=== PATIENT | male | born 1955 | race Caucasian/White ===

== ENCOUNTER → 2017-08-04 | Outpatient (CLI) | payer OTHER | END | disposition home or self-care (01) | LOC: PCVCIMAG 09:42 | DX: I65.22 Occlusion and stenosis of left carotid artery (principal); E78.5 Hyperlipidemia, unspecified; R94.31 Abnormal electrocardiogram [ECG] [EKG]; R06.02 Shortness of breath | CPT/HCPCS: 93325; 93351; 93880 ==

== ENCOUNTER → 2020-05-20 | Outpatient (CLI) | payer MEDICARE | LOC: LAB 06:52 | PROVIDERS: ATTEND Internal Medicine Gastroenterology | DX: Z01.812 Encounter for preprocedural laboratory examination (principal); K21.9 Gastro-esophageal reflux disease without esophagitis; Z86.010 Personal history of colon polyps; Z12.11 Encounter for screening for malignant neoplasm of colon; Z20.828 Contact with and (suspected) exposure to other viral communicable diseases | CPT/HCPCS: U0003 ==

== ENCOUNTER → 2020-05-22 | Day surgery (SDC) | payer MEDICARE ==
[~2020-05-22] MED LIST: ATOR40TA59 PO; IV RINGERS,LACTATED 1000ML 1,000 ML IV SCH; LEVE750T23 PO; LIDOCAINE 2% PF 5 ML VIAL. ONE; METO25TA2 PO; PROPOFOL 10 MG/ML (20ML) VIAL. IV ONE; TAMS0.4C97 PO
--- NOTE | 2020-05-22 08:36 | CONS ---
DATE OF CONSULTATION: 05/22/2020 REASON FOR CONSULTATION: Colorectal screening and GERD. HISTORY OF PRESENT ILLNESS: This is a 65-year-old male, past medical history is significant for hyperlipidemia, hypertension, BPH, is seen for colonic polyps and scope in 2001, which revealed tubular adenoma and in 2004. Surveillance exam is recommended at this time. In addition, he has had chronic reflux and hiatal hernia, which has been controlled with vskf-ynf-hqicvcv meds. Bowel habits are regular. There has been no melena or hematochezia. Weight and appetite are stable. He is otherwise without additional complaints. PAST MEDICAL HISTORY: GERD, hypertension, BPH. ALLERGIES: None. MEDICATIONS: Atorvastatin, levetiracetam, metoprolol and tamsulosin. FAMILY AND SOCIAL HISTORY: Significant for colonic polyps, liver disease, ulcerative colitis. Nonsmoker. Social drinker. REVIEW OF SYSTEMS: As per records. PHYSICAL EXAMINATION: GENERAL: Reveals a well-nourished, well-developed male who is alert, cooperative, in no acute distress. VITAL SIGNS: Temperature 97.1, pulse 67, respiratory rate 20. LUNGS: Clear. CARDIOVASCULAR: Reveals an S1, S2 without S3, S4 or appreciable murmur. ABDOMEN: With a soft abdomen. Normal bowel sounds, without appreciable hepatosplenomegaly. EXTREMITIES: Reveals no cyanosis, clubbing or edema. ASSESSMENT AND PLAN: 1. Colorectal screening. Risks and benefits of procedure were discussed with the patient including risk of hemorrhage and perforation and willing to proceed. 2. Gastroesophageal reflux disease. We will recommend medical therapy with interval EGD to assess for Harrell's stricture and/or malignancy. KALEY WINN MD DR: PAULA/bryce JOB#: [id number] / [id number] KERRY Cooper MD
[2020-05-22 09:10] VITALS: BP 129/64
--- NOTE | 2020-05-25 15:08 | PATHOLOGY ---
[facility] Accession Number: [id number] . 01 Material submitted: . colon - SIGMOID POLYP BIOPSY. Modifiers: sigmoid . 01 Clinical history: . GERD, HX POLYPS . 02 Diagnosis: Colon biopsies, sigmoid polyp: - Tubular adenoma. . ([facility]:mm; 05/25/2020) [facility] 05/25/2020 1216 Local . 02 Comment: There is no high grade dysplasia or evidence of malignancy. . ([facility]:mm; 05/25/2020) . 02 Electronically signed: . Dean Sloan MD, Pathologist NPI- [id number] . 01 Gross description: . Received in formalin labeled "Aldair, Mando, sigmoid polyp" are multiple carreno-brown soft tissue fragments measuring in aggregate 1.0 x 0.4 x 0.1 cm. The specimen is submitted entirely in A1. ([facility] [place] [place]; 05/23/2020) [facility] 05/23/2020 1049 Local . 02 Pathologist provided ICD-10: D12.5 . 02 CPT . 672498 Specimen Comment: A courtesy copy of this report has been sent to [phone], [phone] Specimen Comment: [id number] Specimen Comment: Report sent to / DR SIBLEY Performed at: 01 [facility] [address], [place] [id number] MD Howard Quezada MD Phone: [phone] Performed at: 02 [facility] [address], [place] [id number] MD Dean Sloan MD Phone: [phone]
== END | disposition home or self-care (01) ==
LOC: ENDOS 07:26
PROVIDERS: ATTEND Internal Medicine Gastroenterology
DX: Z12.11 Encounter for screening for malignant neoplasm of colon (principal); K21.9 Gastro-esophageal reflux disease without esophagitis; R12 Heartburn; K29.50 Unspecified chronic gastritis without bleeding; K64.0 First degree hemorrhoids; D12.5 Benign neoplasm of sigmoid colon; K63.89 Other specified diseases of intestine; I10 Essential (primary) hypertension; E78.00 Pure hypercholesterolemia, unspecified; M19.90 Unspecified osteoarthritis, unspecified site; N40.0 Benign prostatic hyperplasia without lower urinary tract symptoms; K44.9 Diaphragmatic hernia without obstruction or gangrene; G47.30 Sleep apnea, unspecified; Z86.010 Personal history of colon polyps; Z79.899 Other long term (current) drug therapy; Z98.890 Other specified postprocedural states; Z72.89 Other problems related to lifestyle
CPT/HCPCS: 43235; 45380; 88305; J2704

== ENCOUNTER → 2020-08-17 | Outpatient (CLI) | payer MEDICARE ==
[2020-05-22 09:10] VITALS: BP 129/64
[~2020-08-17] MED LIST changes: -IV RINGERS,LACTATED 1000ML 1,000 ML IV SCH; -LIDOCAINE 2% PF 5 ML VIAL. ONE; -PROPOFOL 10 MG/ML (20ML) VIAL. IV ONE; +ZOLPIDEM 5 MG TABLET. PO ONE
--- NOTE | 2020-08-18 11:33 | SLEEP ---
DATE OF STUDY: 08/17/2020 SLEEP STUDY ATTENDING PHYSICIAN: Dr. Rick Gusman. The patient is a 65-year-old who weighs 170 pounds with a BMI of 27. The patient's [place] score was 10. The patient underwent split night study, performed at [facility] During the night study, the patient spent 464 minutes in bed and slept for 332 minutes with a sleep efficiency of 72%. Sleep latency was 47 minutes with a REM latency of 144 minutes. Sleep architecture showed increased stage 1 and stage 2 sleep, increased slow wave and reduced REM sleep. During the initial diagnostic portion of the study, the patient slept for 154 minutes. During the time, the patient had 2 obstructive apneas, 3 mixed apneas, 4 central apneas and 40 hypopneas. The patient's AHI was 19 per hour with a supine AHI of 19 per hour and a REM AHI of 80 per hour. EKG monitoring revealed an average heart rate of 55 beats per minute, no sustained arrhythmias observed. Nocturnal oximetry study revealed a mean oxygen saturation of 96%; the lowest of 79%. Only 3% of time oxygen saturation remained between 80% and 89%. PLMS were seen at index of 55 per hour and 1 per hour caused EEG arousals. The patient met the criteria for CPAP initiation. It was started at 5 cm water and titrated up to 10 cm water. At the final pressure, the patient slept for 45 minutes. The patient had supine sleep, but no REM sleep. The patient's AHI was reduced to 3 per hour and oxygen saturation remained above 95%. IMPRESSION: 1. Moderate obstructive sleep apnea with worsening during REM sleep. Total AHI 19 per hour with a REM AHI of 80 per hour. 2. Nocturnal hypoxia resolved with CPAP. 3. Severe PLMS. RECOMMENDATIONS: 1. CPAP at 10 cm water completely eliminated the patient's sleep apnea and should be used on a nightly basis. 2. Follow up in 4-6 weeks to assess compliance with CPAP and to document clinical improvement. 3. Avoid M[employer] depressants. 4. Cautioned regarding driving until symptoms of sleep apnea resolve with the use of CPAP. 5. The PLMS does not need to be treated. The patient's arousal index was only 1 per hour. Please evaluated for symptoms of restless legs during the day. BELLE BEAVERS MD DR: PATY/bryce JOB#: [id number] / [id number] RICK Weinberg MD
== END ==
LOC: RT 18:38
PROVIDERS: ATTEND Family Medicine
DX: G47.33 Obstructive sleep apnea (adult) (pediatric) (principal)
CPT/HCPCS: 95810

== ENCOUNTER → 2020-10-29 | Outpatient (CLI) | payer MEDICARE ==
[2020-05-22 09:10] VITALS: BP 129/64
[~2020-10-29] MED LIST changes: +CONTRAST GIVEN. MC PRN; +GADOTERATE 5 MMOL/10ML VIAL. IVP ONE; +GADOTERATE 7.5 MMOL/15ML VIAL. IVP ONE; +IOHEXOL 300 MG/ML 50 ML VIAL. INT ART ONE; +LIDOCAINE 1% Multi-Dose 20 ML VIAL. INJ ONE; -ZOLPIDEM 5 MG TABLET. PO ONE
--- NOTE | 2020-10-29 14:48 | RAD ---
EXAM: MRI LEFT SHOULDER WITH CONTRAST INDICATION: Left shoulder pain COMPARISON: None TECHNIQUE: Multiplanar, multisequence imaging of the left shoulder after intra-articular injection of contrast, performed separately. FINDINGS: ROTATOR CUFF: There is a deep partial-thickness tear at the posterior infraspinatus tendon measuring approximately 0.9 x 0.7 cm. Suspect shallow partial thickness articular sided tearing of the supraspi natus tendon just proximal to the footprint measuring approximately 1 cm coronal diameter. There is i nfraspinatus and subscapularis tendinopathy. No rotator cuff muscle atrophy or edema. LABRUM: Superior labral fraying. BICEPS TENDON: Mild tendinopathy of the biceps tendon exits the joint. ACROMIOCLAVICULAR JOINT: Mild chronic clavicular degenerative joint disease. Slight anterior downslop ing of the acromion. GLENOHUMERAL JOINT: Cartilage is intact. Alignment is normal. Marrow signal is normal. OTHER: Contrast distends the joint. No contrast or fluid in the subacromial-subdeltoid bursa. IMPRESSION: 1. Partial-thickness articular sided tear of the posterior infraspinatus tendon distally and possible shallow articular sided tear of the mid supraspinatus tendon proximal to the footprint. Infraspinatu s and subscapularis tendinopathy. 4. Mild biceps tendinopathy. Electronically signed by: Genny Tamez MD (10/29/2020 2:46 PM) [id number]
--- NOTE | 2020-10-29 18:02 | RAD ---
EXAM: Fluoroscopically guided left shoulder joint injection for MRI arthrogram INDICATION: Left shoulder pain COMPARISON: Left shoulder radiograph 10/07/2020 TECHNIQUE/FINDINGS: The purpose of the procedure and risks including infection, bleeding, contrast reaction, and pain wer e discussed with the patient. Informed consent was obtained. A timeout was performed. After obtaining consent, the patient was placed supine on the fluoroscopy table with the left shoulde r externally rotated. The skin overlying the left shoulder was marked, sterilized and draped. Super ficial and deep soft tissues were anesthetized with 1% lidocaine. Utilizing fluoroscopic guidance, a 25-gauge 1.5 inch needle was advanced into the joint. Intraarticular position was confirmed with inj ection of a small amount of iodinated contrast. Subsequently, 13 mm of a solution containing the fol lowing items was instilled into the joint: 10 mL of 1% lidocaine, 5 mL of sterile saline, 5 mL of no n-ionic iodinated contrast, and 0.1 mL of gadolinium. At the end of the procedure, the needle was removed. The overlying skin was cleansed and covered wit h a bandaid. The patient tolerated the procedure well and was free of immediate complications. The p atient was transferred for the MR portion of the exam in stable condition. Total fluoroscopic time: 0.1 minute. One image. IMPRESSION: Technically successful left glenohumeral joint injection for the purposes of MR arthrogr am. Electronically signed by: Genny Tamez MD (10/29/2020 5:59 PM) [id number]
== END | disposition home or self-care (01) ==
LOC: RAD 08:28
PROVIDERS: ATTEND Orthopaedic Surgery
DX: M25.512 Pain in left shoulder (principal); M19.012 Primary osteoarthritis, left shoulder; E78.00 Pure hypercholesterolemia, unspecified; I10 Essential (primary) hypertension; G47.30 Sleep apnea, unspecified; K21.9 Gastro-esophageal reflux disease without esophagitis; Z79.899 Other long term (current) drug therapy; Z98.890 Other specified postprocedural states; Z72.89 Other problems related to lifestyle
CPT/HCPCS: 20610; 73222; 77002; A9575; J3490; Q9967

== ENCOUNTER → 2021-04-07 | Outpatient (CLI) | payer MEDICARE ==
[2020-05-22 09:10] VITALS: BP 129/64
[~2021-04-07] MED LIST changes: -CONTRAST GIVEN. MC PRN; -GADOTERATE 5 MMOL/10ML VIAL. IVP ONE; -GADOTERATE 7.5 MMOL/15ML VIAL. IVP ONE; -IOHEXOL 300 MG/ML 50 ML VIAL. INT ART ONE; -LIDOCAINE 1% Multi-Dose 20 ML VIAL. INJ ONE; +REGADENOSON 0.4 MG/5 ML DISP.SYRIN. IV ONE
--- NOTE | 2021-04-07 15:57 | RAD ---
MR#: [id number] Date of Study: 04/07/2021 Ordering Physician: TAMEKA RAJPUT, Referring Physician: JANE SANDHU Tech: LUAN Dodge, ARIANNA (R) (N)Daniel Baez [facility] APPROVED REPORT Test Type: Pharmacological Stress Nurse/Tech: Ranjan Miramontes RN Test Indications: Dyspnea Cardiac History: HTN, See EMR. Medications: See EMR. Medical History: See EMR. Resting ECG: SB Resting Heart Rate: 44 bpm Resting Blood Pressure: 131/64mmHg Pretest Chest Pain: No chest pain Nurse/Tech Notes Lungs CTA, Heart tones regular. Consent: The procedure was explained to the patient in lay terms. Informed consent was witnessed. Jose F eout was entered into [employer]. History and Stress Test performed by LUAN Dodge, ARIANNA (R) (N) Pharm. Details Pharmacologic stress testing was performed using 0.4mg per 5ml of regadenoson given intravenously ove r 7-10 seconds. Stress Symptoms Dyspnea, Dizziness, Lightheaded; all symptoms have resolved by the completion of the test. Pt starte d stress test as a treadmill; but could not complete the test due to in abiltiy to reach target heart rate do to fatigue. POST EXERCISE Reason for Termination: Infusion complete Max HR: 92 bpm Max Blood Pressure: 127/55mmHg Blood Pressure response to exercise: Normal blood pressure response during stress. Heart Rate response to exercise: WNL Chest Pain: No. Arrhythmia: No. ST Change: No. INTERPRETATION Stress EKG Conclusion: Baseline EKG showed sinus rhythm with inferolateral T wave inversions. Nondia gnostic changes at peak stress. No arrhythmias. Imaging Protocol IMAGE PROTOCOL: Rest Tc-99m/stress Tc-99m 1 day Rest: Stress: Viability: Radiopharm.Tc99m UanleyedkJw18e Sestamibi Dose10.5mCi 30mCi Duration 15min. 13min. Img Date 04/07/2021 04/07/2021 Inj-Img Xfug92fji. 60min. Rest Admin Site:IV - Right AntecubitalAdministrator:Maureen Meza, RT (R)(N) Stress Admin Site: IV - Right AntecubitalAdministrator: JANE DodgeTCHunter, ARRT (R)(N) STRESS DATA End Diast. Vol.70.0mlLVEDV index BSA38.0ml End Syst. Vol.17.0mlLVESV index BSA9.0ml Myocardial Lboi085.0gEject. Qvkxhrya93.0% Stress Scores Regional WT0.00Summed WT11.00 Regional WM0.00Summed WM1.00 Study quality was good. Left Ventricular size was Normal at Rest and Stress. Lung uptake was . Left Ventricular ejection fraction is 75%. The rest and stress images show normal perfusion, normal contraction and thickening. LV Perf. Quant 17 Seg. SSS2.00 17 Seg. SRS1.00 17 Seg. SDS2.00 Stress Defect Extent (% LAD)0.00Rest Defect Extent (% LAD)0.00Rev. Defect Extent (% LAD)0.00 Stress Defect Extent (% LCX) 15.00Rest Defect Extent (% LCX)0.00Rev. Defect Extent (% LCX)0.00 Stress Defect Extent (% RCA)0.00Rest Defect Extent (% RCA)0.00Rev. Defect Extent (% RCA)0.00 Stress Defect Extent (% YAQUELIN)2.60Rest Defect Extent (% YAQUELIN)0.00Rev. Defect Extent (% YAQUELIN)0.00 Conclusion 1. Regadenoson cardioisotope stress test did not show any evidence of ischemia or infarct. 2. Normal left ventricular systolic function with ejection fraction calculated at 75%. 3. Low risk for cardiac events. Signed by : Lalo Mederos, Electronically Approved : 04/07/2021 15:57:19
--- NOTE | 2021-04-07 16:07 | CARD ---
MR#: [id number] Date of Study: 04/07/2021 Ordering Physician: TAMEKA RAJPUT, Referring Physician: TAMEKA RAJPUT, Tech: Whitney Castle, [facility] APPROVED REPORT EXAM: Two-dimensional and M-mode echocardiogram with Doppler and color Doppler. Other Information Quality : AverageHR: 64bpm INDICATION Dyspnea RISK FACTORS Hypertension Hyperlipidemia 2D DIMENSIONS Left Atrium(2D)3.5 (1.6-4.0cm)IVSd1.1 (0.7-1.1cm) Aortic Root(2D)3.3 (2.0-3.7cm)LVDd4.8 (3.9-5.9cm) LVOT Diameter2.1 (1.8-2.4cm)PWd1.0 (0.7-1.1cm) LVDs2.7 (2.5-4.0cm)FS (%) 42.7 % SV78.9 mlLVEF(%)63.8 (>50%) Aortic Valve AoV Peak Lucas.141.8cm/sAoV VTI28.8cm AO Peak GR.8.0mmHgLVOT Peak Lucas.117.9cm/s LVOT VTI 25.47cmAO Mean GR.4mmHg LORNE (VMAX)2.37kl6CUC (VTI)3.06cm2 Mitral Valve MV E Ttapcyit00.3cm/sMV DECEL HFGL134va MV A Tjbabzia03.6cm/sMV E Mean Gr.1mmHg MV YOC77flU/A Ratio0.9 MVA (PHT)3.14cm2 TDI E/Lateral E'6.7E/Medial E'7.6 Pulmonary Valve PV Peak Txjrbztm553.7cm/sPV Peak Grad.4mmHg Tricuspid Valve TR P. Nakbvlno881xm/sRAP LLUTDEND1hsUy TR Peak Gr.85owMyRELM54tmAx Pulmonary Vein S1 Gqdvysbv76.4cm/sD2 Zuijqinz29.6cm/s PVa lbkswkwd587xuhz LEFT VENTRICLE The left ventricle is normal size. There is borderline to mild concentric left ventricular hypertroph y. The left ventricular systolic function is normal. The Ejection Fraction is 60%. There is normal LV segmental wall motion. Transmitral Doppler flow pattern is Grade I-abnormal relaxation pattern. RIGHT VENTRICLE The right ventricle is normal size. There is normal right ventricular wall thickness. The right ventr icular systolic function is normal. ATRIA The left atrium size is normal. The right atrium size is normal. The interatrial septum is intact wit h no evidence for an atrial septal defect or patent foramen ovale as noted on 2-D or Doppler imaging. AORTIC VALVE The aortic valve is normal in structure and function. Doppler and Color Flow revealed trace aortic re gurgitation. There is no significant aortic valvular stenosis. Calculated aortic valve area is 2.38 c m2 with maximum pressure gradient of 10 mmHg and mean pressure gradient of 6 mmHg. MITRAL VALVE The mitral valve is normal in structure and function. There is no evidence of mitral valve prolapse. There is no mitral valve stenosis. Doppler and Color-flow revealed trace mitral regurgitation. TRICUSPID VALVE The tricuspid valve is normal in structure and function. Doppler and Color Flow revealed trace tricus pid regurgitation with an estimated PAP of 24 mmHg. There is no tricuspid valve stenosis. PULMONIC VALVE The pulmonic valve is not well visualized. Doppler and Color Flow revealed trace pulmonic valvular re gurgitation. GREAT VESSELS The aortic root is normal in size. The ascending aorta is normal in size. The IVC is normal in size a nd collapses >50% with inspiration. PERICARDIAL EFFUSION There is no evidence of significant pericardial effusion. Critical Notification Critical Value: No <Conclusion> The left ventricular systolic function is normal. The Ejection Fraction is 60%. There is normal LV segmental wall motion. Transmitral Doppler flow pattern is Grade I-abnormal relaxation pattern. Trace mitral regurgitation. Trace tricuspid regurgitation with an estimated PAP of 24 mmHg. There is no evidence of significant pericardial effusion. Signed by : Lalo Mederos, Electronically Approved : 04/07/2021 16:07:01
== END ==
LOC: ECHO 08:44
PROVIDERS: ATTEND Internal Medicine Cardiovascular Disease
DX: R06.00 Dyspnea, unspecified (principal); I51.7 Cardiomegaly
CPT/HCPCS: 78452; 93017; 93306; A9500; J2785